=== PATIENT | female | born 1990 | race Caucasian/White ===

== ENCOUNTER 2017-03-13 01:41 | Emergency (ER) | payer SELFPAY ==
[~2017-03-13] VITALS: Ht 157.5 cm; Wt 55.0 kg
[2017-03-13] MEDS ORDERED: ONDANSETRON 2MG/ML, 2ML IVPush ONE (02:00)
[2017-03-13] MEDS ORDERED: ONDANSETRON 2MG/ML, 2ML ONE (02:10)
[2017-03-13 04:58] VITALS: BP 110/70
== END 2017-03-13 05:28 | disposition home or self-care (01) ==
LOC: ED 05:15
DX: F10.121 Alcohol abuse with intoxication delirium (principal); G93.41 Metabolic encephalopathy
CPT/HCPCS: 36415; 80307; 96374; 99284; J2405; G0479